=== PATIENT | female | born 1965 | race African-American/Black ===

== ENCOUNTER → 2020-12-08 | Outpatient (CLI) | payer OTHER ==
[~2020-12-08] MED LIST: CYCLOBENZAPRINE5 MG PO; NAPROXEN250 MG PO
== END ==
LOC: RAD 07:15
PROVIDERS: ATTEND Family Medicine
DX: R09.89 Other specified symptoms and signs involving the circulatory and respiratory systems (principal)
CPT/HCPCS: 71046